=== PATIENT | female | born 2000 | race Caucasian/White ===

== ENCOUNTER → 2019-06-16 18:06 | Outpatient (BNVA) | payer SELFPAY | PROVIDERS: PCP Nurse Practitioner Family; Visit Provider Nurse Practitioner | DX: J20.8 Acute bronchitis due to other specified organisms (principal); B96.89 Other specified bacterial agents as the cause of diseases classified elsewhere; J02.9 Acute pharyngitis, unspecified | CPT/HCPCS: 87804 ==

== ENCOUNTER → 2019-06-22 15:30 | Outpatient (BNVA) | payer SELFPAY | PROVIDERS: PCP Nurse Practitioner Family; Visit Provider Nurse Practitioner Family | DX: R50.9 Fever, unspecified (principal); J98.8 Other specified respiratory disorders | CPT/HCPCS: 87400 ==

== ENCOUNTER → 2019-07-11 11:30 | Outpatient (BNVA) | payer MEDICAID, SELFPAY | PROVIDERS: PCP Nurse Practitioner Family; Visit Provider Obstetrics & Gynecology | DX: Z34.90 Encounter for supervision of normal pregnancy, unspecified, unspecified trimester (principal) | CPT/HCPCS: 81025 ==

== ENCOUNTER → 2019-08-02 09:20 | Outpatient (BNVA) | payer MEDICAID, SELFPAY | PROVIDERS: PCP Nurse Practitioner Family; Visit Provider Obstetrics & Gynecology | DX: Z34.01 Encounter for supervision of normal first pregnancy, first trimester (principal) | CPT/HCPCS: 80053; 80307; 81000; 86592; 86762; 86803; 86850; 86900; 87340; 87806 ==

== ENCOUNTER 2019-08-11 11:01 | Emergency (ER) | payer MEDICAID, SELFPAY ==
[2019-08-11] VITALS (14 sets, daily range): BP systolic 119–142; BP diastolic 76–105; PULSE 97–127; RESP 16–28; TEMP 36.6–37.3; O2SAT 97–100; BMI 19.7
--- NOTE | 2019-08-11 11:15 | W.ED.NAVMDI ---
HPI - Nausea/Vomiting/Diarrhea General: Chief complaint: Nausea/Vomiting/Diarrhea Stated complaint: 11 WKS PREG, VOMITING Time Seen by Provider: 08/11/19 11:04 Source: patient Mode of arrival: ambulatory History of Present Illness: HPI Narrative: 1-year-old female who is currently 12 weeks . She states she had multiple episodes of vomiting through this . She states she tried a suppository for nauseous morning has not helped. She is continued to vomit throughout the day. She denies any abdominal pain or vaginal bleeding. She denies any worsening or improving factors. MD elicited complaint: nausea and vomiting Onset (ago): day(s) Description of vomiting: food contents Associated nausea: Yes Associated abdominal pain: No Associated symtoms: Reports nausea; Denies chest pain, dysuria or headache(s) Review of Systems Const: Denies: fever, chills, body aches or change in appetite Eyes: Denies: blurry vision or eye discomfort ENMT: Denies: throat pain or dental pain Card: Denies: chest pain Resp: Denies: shortness of breath GI: Reports: nausea and vomiting : Denies: painful urination Musc: Denies: neck pain or back pain Skin/Breast: Denies: rash Neuro: Denies: headache Psych: Denies: depression Carlos/Lymph: Denies: easy bruising All/Imm: Denies: hives PFS ED PFSH: Medical History (Updated 08/11/19 @ 17:57 by Joaquín Calvo MD) Anxiety with depression History of traumatic head injury (~2013) thrown from a horse-- no surgical intervention Migraine with aura Social History Smoking and tobacco status: never smoked Alcohol intake: never Female Reproductive History: Date of last menstrual period: 05/21/19 Physical Exam Const: COMMON NORMALS: no apparent distress, oriented x3 and healthy appearing HENMT: COMMON NORMALS: normocephalic and head/scalp atraumatic HEAD & SCALP: normocephalic and atraumatic Eye: COMMON NORMALS: PERRL and EOMs intact bilaterally PUPIL: Yes PERRL Neck/C-Spine: COMMON NORMALS: full ROM and supple Chest: COMMONS NORMALS: inspection of chest normal and palpation of chest normal Resp: COMMON NORMALS: normal respiratory effort, no retractions, no use of accessory muscles and clear to auscultation bilaterally AUSCULTATION: clear to auscultation bilaterally Cardio: COMMON NORMALS: regular rate, regular rhythm and no murmurs RATE: regular rate RHYTHM: regular rhythm GI: COMMON NORMALS: normal to inspection, nondistended, normoactive bowel sounds, soft to palpation, non-tender and no masses PALPATION: Yes soft Extremity: COMMON NORMALS: normal to inspection and full ROM Neuro: COMMON NORMALS: oriented x3, moves all extremities and no focal motor deficits Psych: COMMON NORMALS: mental status grossly normal, thought process normal and cooperative THOUGHT PROCESS: normal thought process Skin: COMMON NORMALS: no rashes or lesions noted and no wounds GENERAL SKIN EXAM: no rashes or lesions noted Course Vital Signs: Vital signs: Vital Signs Temperature 98.6 F 08/11/19 16:56 Pulse Rate 124 H 08/11/19 17:45 Respiratory Rate 20 H 08/11/19 17:45 Blood Pressure 127/86 08/11/19 17:45 Pulse Oximetry 100 08/11/19 17:45 MDM - Nausea/Vomiting/Diarrhea MDM Narrative: Medical decision making narrative: Patient presents here with hyperemesis gravidarum. Patient x-ray had free air so CT was performed which showed pneumomediastinum with concern of esophageal rupture. I spoke to CT surgeon on-call at [facility] Dr. Todd and did a barium swallow as requested. Barium swallow showed no active leak at this time. Patient is continued to have nausea here. CASH POSTER here felt uncomfortable admitting with no CT surgery with all the pneumomediastinum. I spoke to OB at [facility] and will transfer there for higher level of care. Patient has been stable while here. Lab Data: Labs: Lab Results 08/11/19 08/11/19 08/11/19 Range/Units 11:35 11:35 15:20 WBC 22.6 H (4.0-10.0) 10^3/ uL RBC 5.51 H (4.1-5.3) 10^6/u L Hgb 15.8 H (11.5-15.3) g/dL Hct 46.4 (37.0-47.0) % MCV 84.2 (81-99) fL MCH 28.7 (28.0-34.0) pg MCHC 34.1 (30.0-36.0) g/dL RDW 12.9 (12.1-15.1) % Plt Count 335 (130-400) 10^3/c mm MPV 10.7 H (7.4-10.4) fL Neut % (Auto) 92.1 % Lymph % (Auto) 4.8 % [place] % (Auto) 1.9 % Eos % (Auto) 0.0 % Baso % (Auto) 0.1 % Neut # (Auto) 20.8 H (1.8-7.7) 10^3/u L Lymph # (Auto) 1.1 (0.8-4.8) 10^3/u L [place] # (Auto) 0.4 (0.2-0.9) 10^3/u L Eos # (Auto) 0.0 (0.0-0.8) 10^3/u L Baso # (Auto) 0.0 (0.0-0.1) 10^3/u L Nucleated RBC % (a uto) 0 % Nucleated RBCs # 0.0 /100WBC Sodium 135 L (136-145) mmol/L Potassium 3.5 (3.5-5.1) mmol/L Chloride 94 L (98-107) mmol/L Carbon Dioxide 17 L (22-29) mmol/L Anion Gap 27.5 H (5-19) BUN 11 (6-20) mg/dL Creatinine 0.7 (0.5-0.9) mg/dL GFR Calculation 105.6 (90-130) mL/min Glucose 175 H (65-115) mg/dL Calculated Osmolal ity 280 L (285-295) mOsm/k g Calcium 11.6 H (8.5-10.5) mg/dL Total Bilirubin 0.4 (0.15-1.2) mg/dL AST 25 (0-32) U/L ALT 11 (0-33) U/L Alkaline Phosphata se 75 (35-105) IU/L Total Protein 9.4 H (6.6-8.7) g/dL Albumin 5.0 (3.5-5.2) g/dL Globulin 4.4 (1.3-4.6) g/dL Lipase 22 (13-60) U/L Urine Color Yellow (Yellow) Urine Appearance Clear (CLEAR) Urine pH 5 (5-7) Ur Specific Gravit y 1.005 (1.005-1.030) Urine Protein 1+ H (Negative) Urine Glucose (UA) Norm (Normal) Urine Ketones 3+ H (Negative) Urine Blood Neg (Negative) Urine Nitrate Negative (Negative) Urine Bilirubin Neg (NEGATIVE) Urine Urobilinogen Norm (Negative) mg/dL Ur Leukocyte Melissa ase Negative (Negative) Urine RBC None (0-2) /hpf Urine WBC 0-4 H (0-5) /hpf Ur Squamous Epith Cells 0-4 H (0-5) Urine Bacteria Trace (NONE) Urine Mucus 3+ Imaging Data^: CT Chest: Radiologist's impression: [place] [address] CT Scan Report Signed Patient: Peña Emmanuel Unit #: [id number] : [id number] Age/Sex: 19 / F ADM Date: 08/11/19 Loc: ER Room/Bed: Attending Dr: Ordering Provider/Ordering MD: Joaquín Calov MD Date of Service: 08/11/19 Procedure(s): CT chest w con* [id number] Accession Number(s): [id number] Report Number: [id number] WS: [id number] CT CHEST TECHNIQUE: Contrast enhanced CT of the chest with coronal and sagittal reformatted images. CLINICAL INFORMATION: chest pain. Hyperemesis gravidarum. COMPARISON: None. DLP: 323.[address] scans at [facility] use at least one of these dose optimization techniques: automated exposure control; mA and/or kV adjustment per patient size (includes targeted exams where dose is matched to clinical indication); or iterative reconstruction. FINDINGS: Extensive pneumomediastinum involving the anterior, middle and posterior mediastinum. Air surrounds the great vessels, trachea, esophagus, and dissects into the fascial planes. Subcutaneous emphysema extends into the lower neck right greater than left and right axilla. Posteriorly air surrounds the thoracic esophagus and distal esophagus at the GE junction. Given clinical history findings most likely due to esophageal perforation. No pneumothorax. Both lungs are well aerated. Tiny amount of air in the epidural space thoracic spine. Ribs are normal in appearance. No acute fractures. Normal caliber thoracic aorta. Upper abdominal contents are unremarkable. IMPRESSION: 1. Extensive pneumomediastinum described above with subcutaneous emphysema extending into the lower neck and right axilla. 2. Given clinical history and imaging findings esophageal perforation is the primary consideration. Air surrounding the distal esophagus and GE junction. 3. No pneumothorax. 4. Lungs are well aerated. EKG Data^: EKG 1: Attestation: I personally reviewed and interpreted this EKG as follows: EKG interpretation date: 08/11/19 EKG interpretation time: 13:32 Interpretation: sinus tach hr [address] or t wave abnormalities qrs 92 qtc 415 Critical Care Time Critical Care Time: Critical Care Time: Yes Total Critical Care Time: 35 Attestation: This case had a high probability of a clinically significant, sudden, or life threatening deterioration of this patient's condition which required my full and direct attention, intervention and personal management. Discharge Plan Discharge Patient Disposition: Xfer Other Clinical Impression: Hyperemesis gravidarum, Pneumomediastinum Condition: Stable Referrals: Kera Salazar APN [Primary Care Provider] - Coding Level of Care Code ED Charge Lpn for Chg Fwd Exam Comprehensive
[2019-08-11 11:46] LABS: Basophils % 0.1 %; Hematocrit 46.4 % (37.0-47.0); Hemoglobin 15.8 g/dL (11.5-15.3); Lymphocytes # 1.1 10^3/uL (0.8-4.8); Lymphocytes % 4.8 %; Mean Corpuscular HGB Conc 34.1 g/dL (30.0-36.0); Mean Corpuscular Hemoglobin 28.7 pg (28.0-34.0); Mean Corpuscular Volume 84.2 fL (81-99); Mean Platelet Volume 10.7 fL (7.4-10.4); Monocytes # 0.4 10^3/uL (0.2-0.9); Monocytes % 1.9 %; Neutrophils # 20.8 10^3/uL (1.8-7.7); Neutrophils % 92.1 %; Nucleated Red Blood Cells % 0 %; Platelet Count 335 10^3/cmm (130-400); Red Blood Count 5.51 10^6/uL (4.1-5.3); Red Cell Distribution Width 12.9 % (12.1-15.1); White Blood Count 22.6 10^3/uL (4.0-10.0)
--- NOTE | 2019-08-11 11:49 | US_ITS ---
WS: [id number] ABDOMINAL ULTRASOUND LIMITED REASON FOR VISIT: abd pain TECHNIQUE: Grayscale and Doppler ultrasound examination of the abdomen. FINDINGS: Pancreas: Appears to be within normal limits. Abdominal aorta and IVC: Normal findings. Liver: Liver measures 15.1 cm in length. Normal hepatopedal flow. Gallbladder: Gallbladder wall thickness measures 0.2 mm. No stones are noted. Right kidney: Right kidney measures 10.2 cm x 5.4 cm x 3.9 cm. No hydronephrosis or stones are seen. US/US gall bladder 94200 IMPRESSION: Negative right upper quadrant abdominal survey by ultrasound.
[2019-08-11] MEDS: diphenhydrAMINE 50 mg/mL SDV 1mL IVP ×2 (11:50→17:38)
[2019-08-11] MEDS: sodium chloride 0.9% 1,000 ML 999 ML IV ×2 (11:50→14:16)
[2019-08-11] MEDS: metoclopramide 5 mg/mL SDV 2 mL 10 MG IVP (11:51)
[2019-08-11 12:08] LABS: Alanine Aminotransferase 11 U/L (0-33); Alkaline Phosphatase 75 IU/L (35-105); Anion Gap 27.5 (5-19); Aspartate Amino Transferase 25 U/L (0-32); Blood Urea Nitrogen 11 mg/dL (6-20); Calcium 11.6 mg/dL (8.5-10.5); Carbon Dioxide 17 mmol/L (22-29); Chloride 94 mmol/L (98-107); Globulin 4.4 g/dL (1.3-4.6); Glomerular Filtration Rate 105.6 mL/min (90-130); Glucose 175 mg/dL (65-115); Lipase 22 U/L (13-60); Osmolality Calculated 280 mOsm/kg (285-295); Potassium 3.5 mmol/L (3.5-5.1); Sodium 135 mmol/L (136-145); Total Bilirubin 0.4 mg/dL (0.15-1.2); Total Protein 9.4 g/dL (6.6-8.7)
--- NOTE | 2019-08-11 13:17 | ECG_ITS ---
Measurements Intervals [place] Rate: 100 P: 60 NV: 133 QRS: 60 QRSD: 92 T: 29 QT: 358 QTc: 462 SINUS TACHYCARDIA ABNORMAL RHYTHM ECG No previous ECG available for comparison Electronically Signed On 08-11-2019 14:14:58 CDT by Cate Montaño M.D. [id number]
--- NOTE | 2019-08-11 13:23 | XR_ITS ---
WS: [id number] XR chest 1V portable [id number] REASON FOR EXAM: cp Subcutaneous emphysema is seen overriding the right hemidiaphragm extends to the midportion of the ch est. A definite pneumothorax is not seen. The heart is not enlarged. There is no pneumonia, pleural effusion, pulmonary edema. XR/XR chest 1V portable [id number] IMPRESSION: Subcutaneous emphysema overriding the right upper chest right clavicle area ext ends into the neck.
[2019-08-11] MEDS: ondansetron 2 mg/ML SDV 2 mL 4 MG IVP (13:25)
[2019-08-11] MEDS: dextrose 5%-sod chloride 0.45% 1,000 ML 150 ML IV ×2 (14:10→21:00)
--- NOTE | 2019-08-11 14:22 | CT_ITS ---
WS: [id number] CT CHEST TECHNIQUE: Contrast enhanced CT of the chest with coronal and sagittal reformatted images. CLINICAL INFORMATION: chest pain. Hyperemesis gravidarum. COMPARISON: None. DLP: 323.[address] scans at [facility] use at least one of these dose optimization techniques: automat ed exposure control; mA and/or kV adjustment per patient size (includes targeted exams where dose is matched to clinical indication); or iterative reconstruction. FINDINGS: Extensive pneumomediastinum involving the anterior, middle and posterior mediastinum. Air surrounds t he great vessels, trachea, esophagus, and dissects into the fascial planes. Subcutaneous emphysema extends into the lower neck right greater than left and right axilla. Posterio rly air surrounds the thoracic esophagus and distal esophagus at the GE junction. Given clinical hist ory findings most likely due to esophageal perforation. No pneumothorax. Both lungs are well aerated. Tiny amount of air in the epidural space thoracic spine. Ribs are normal in appearance. No acute fractures. Normal caliber thoracic aorta. Upper abdominal con tents are unremarkable. IMPRESSION: 1. Extensive pneumomediastinum described above with subcutaneous emphysema extending into the lower neck and right axilla. 2. Given clinical history and imaging findings esophageal perforation is the primary consideration. Air surrounding the distal esophagus and GE junction. 3. No pneumothorax. 4. Lungs are well aerated. Notified Joaquín Calvo MD at 08/11/2019 3:25 PM.
[2019-08-11] MEDS: iohexol 300 mg/mL 100 mL Btl IV (14:52)
--- NOTE | 2019-08-11 16:03 | FL_ITS ---
WS: [id number] Barium swallow TECHNIQUE: Single contrast Gastrografin CLINICAL INFORMATION: r/o esop rupture COMPARISON: None. FINDINGS: Partially visualized pneumomediastinum as described on the chest CT. Swallowing: Normal. Esophagus: No evidence of contrast extravasation or esophageal leak. Slightly delayed esophageal empt derik with tachycardia. Mild esophageal reflux in the upright position into the distal esophagus. Visu alized proximal stomach appears normal. No significant hiatal hernia. Gastroesophageal reflux: Active reflux in the upright position into the distal esophagus. Fluoroscopy time: 2.4 minutes. Notified Joaquín Calvo MD at 08/11/2019 5:00 PM. FL/FL barium swallow gastro [id number] IMPRESSION: No evidence of active esophageal leak at the GE junction or esophageal hiatus.
[2019-08-11 16:06] LABS: Add Urine Microscopic? YES; Bilirubin Urine Neg (NEGATIVE); Blood Urine Neg (Negative); Glucose Urine UA Norm (Normal); Ketones Urine 3+ (Negative); Leukocyte Esterase Urine Negative (Negative); Nitrate Urine Negative (Negative); Protein Urine 1+ (Negative); Specific Gravity, Urine 1.005 (1.005-1.030); Urine Appearance Clear (CLEAR); Urine Color Yellow (Yellow); Urobilinogen Urine Norm (Negative); pH Urine 5 (5-7)
[2019-08-11 16:07] LABS: Add Urine Culture? No; Bacteria Urine TRACE; Mucus Urine 3+; Squamous Epithelial Cell Urine 0-4 (0-5); WBC Urine 0-4 /hpf (0-5)
[2019-08-11] MEDS: piperacillin-tazobactam 3.375 GM in sodium chloride 0.9% (plus) 50 ML IV (16:09)
[2019-08-11] MEDS: metoclopramide 5 mg/mL SDV 2 mL IVP (17:37)
[2019-08-11] MEDS: morphine 4 mg/mL SDV 1 mL IVP (19:10)
--- NOTE | 2019-08-11 19:54 | PC.NURSE ---
report called to [facility]. to Dustin Shields
== END 2019-08-11 21:06 | disposition other institution (70) ==
PROVIDERS: Emergency Provider Emergency Medicine; PCP Nurse Practitioner Family
DX: O21.0 Mild hyperemesis gravidarum (principal); Z3A.12 12 weeks gestation of pregnancy; O26.891 Other specified pregnancy related conditions, first trimester; J98.2 Interstitial emphysema
CPT/HCPCS: 12345; 71045; 71260; 74220; 76705; 80053; 81001; 83690; 85025; 93005; 96365; 96366; 96367; 96375; 96376; 99284; 99285; J1200; J2270; J2405; J2543; J2765; J7030; J7799; Q9967

== ENCOUNTER → 2019-08-19 14:42 | Outpatient (BNVA) | payer MEDICAID, SELFPAY | PROVIDERS: PCP Nurse Practitioner Family; Visit Provider Obstetrics & Gynecology | DX: Z34.01 Encounter for supervision of normal first pregnancy, first trimester (principal) | CPT/HCPCS: 81000 ==

== ENCOUNTER → 2019-08-26 10:55 | Outpatient (BNVA) | payer MEDICAID, SELFPAY | PROVIDERS: PCP Nurse Practitioner Family; Visit Provider Obstetrics & Gynecology | DX: Z12.4 Encounter for screening for malignant neoplasm of cervix (principal); Z34.01 Encounter for supervision of normal first pregnancy, first trimester | CPT/HCPCS: 81000; 87491; 87591; 88175 ==

== ENCOUNTER → 2019-09-13 15:49 | Outpatient (BNVA) | payer MEDICAID, SELFPAY | PROVIDERS: PCP Nurse Practitioner Family; Visit Provider Nurse Practitioner Women's Health | DX: K22.3 Perforation of esophagus (principal); O21.1 Hyperemesis gravidarum with metabolic disturbance; O99.342 Other mental disorders complicating pregnancy, second trimester; G43.109 Migraine with aura, not intractable, without status migrainosus | CPT/HCPCS: 81000 ==

== ENCOUNTER → 2019-10-12 08:08 | Outpatient (BNVA) | payer MEDICAID, SELFPAY | PROVIDERS: PCP Nurse Practitioner Family; Visit Provider Obstetrics & Gynecology | DX: Z34.02 Encounter for supervision of normal first pregnancy, second trimester (principal) | CPT/HCPCS: 76805 ==

== ENCOUNTER → 2019-10-14 11:40 | Outpatient (BNVA) | payer MEDICAID, SELFPAY | PROVIDERS: PCP Nurse Practitioner Family; Visit Provider Obstetrics & Gynecology | DX: O21.1 Hyperemesis gravidarum with metabolic disturbance (principal); Z3A.20 20 weeks gestation of pregnancy | CPT/HCPCS: 81000 ==

== ENCOUNTER → 2019-11-09 15:19 | Outpatient (BNVA) | payer MEDICAID, SELFPAY | PROVIDERS: PCP Nurse Practitioner Family; Visit Provider Obstetrics & Gynecology | DX: Z34.90 Encounter for supervision of normal pregnancy, unspecified, unspecified trimester (principal); G43.109 Migraine with aura, not intractable, without status migrainosus | CPT/HCPCS: 81000 ==

== ENCOUNTER → 2019-12-07 13:01 | Outpatient (BNVA) | payer MEDICAID, SELFPAY | PROVIDERS: PCP Nurse Practitioner Family; Visit Provider Nurse Practitioner Women's Health | DX: Z34.02 Encounter for supervision of normal first pregnancy, second trimester (principal) | CPT/HCPCS: 81000; 82950; 85027 ==

== ENCOUNTER → 2019-12-21 09:54 | Outpatient (BNVA) | payer MEDICAID, SELFPAY | PROVIDERS: PCP Nurse Practitioner Family; Visit Provider Obstetrics & Gynecology | DX: Z34.90 Encounter for supervision of normal pregnancy, unspecified, unspecified trimester (principal) | CPT/HCPCS: 81000 ==

== ENCOUNTER → 2020-01-18 15:40 | Outpatient (BNVA) | payer MEDICAID, SELFPAY | PROVIDERS: PCP Nurse Practitioner Family; Visit Provider Nurse Practitioner Women's Health | DX: Z34.02 Encounter for supervision of normal first pregnancy, second trimester (principal) | CPT/HCPCS: 81000 ==

== ENCOUNTER → 2020-02-01 16:20 | Outpatient (BNVA) | payer MEDICAID, SELFPAY | PROVIDERS: PCP Nurse Practitioner Family; Visit Provider Obstetrics & Gynecology | DX: Z34.02 Encounter for supervision of normal first pregnancy, second trimester (principal); Z34.90 Encounter for supervision of normal pregnancy, unspecified, unspecified trimester | CPT/HCPCS: 81000; 87081 ==

== ENCOUNTER → 2020-02-08 15:28 | Outpatient (BNVA) | payer MEDICAID, SELFPAY | PROVIDERS: PCP Nurse Practitioner Family; Visit Provider Obstetrics & Gynecology | DX: Z34.90 Encounter for supervision of normal pregnancy, unspecified, unspecified trimester (principal) | CPT/HCPCS: 81000 ==

== ENCOUNTER → 2020-02-15 14:59 | Outpatient (BNVA) | payer MEDICAID, SELFPAY | PROVIDERS: PCP Nurse Practitioner Family; Visit Provider Obstetrics & Gynecology | DX: Z34.90 Encounter for supervision of normal pregnancy, unspecified, unspecified trimester (principal) | CPT/HCPCS: 81000 ==

== ENCOUNTER 2020-02-21 06:53 | Inpatient (IN) | payer MEDICAID, SELFPAY ==
[2020-02-21] VITALS (119 sets, daily range): BP systolic 0–157; BP diastolic 0–103; PULSE 51–120; RESP 16–18; TEMP 36.7–37.6; O2SAT 91–98; BMI 25.7
[2020-02-21 05:04] LABS: Nitrazine Paper, PH Negative
[2020-02-21] MEDS: ondansetron 4 MG Tablet PO (05:20)
[2020-02-21] MEDS: ondansetron 2 mg/ML SDV 2 mL 4 MG IVP ×3 (07:13→15:52)
[2020-02-21] MEDS: lactated ringers 1,000 ML 999 ML IV (07:15)
[2020-02-21 08:23] LABS: Basophils % 0.2 %; Hematocrit 36.7 % (37.0-47.0); Hemoglobin 11.6 g/dL (11.5-15.3); Lymphocytes # 1.9 10^3/uL (0.8-4.8); Lymphocytes % 15.7 %; Mean Corpuscular HGB Conc 31.6 g/dL (30.0-36.0); Mean Corpuscular Hemoglobin 25.7 pg (28.0-34.0); Mean Corpuscular Volume 81.2 fL (81-99); Mean Platelet Volume 13.5 fL (7.4-10.4); Monocytes # 0.5 10^3/uL (0.2-0.9); Monocytes % 4.2 %; Neutrophils # 9.73 10^3/uL (1.8-7.7); Neutrophils % 79.5 %; Nucleated Red Blood Cells % 0 %; Platelet Count 276 10^3/cmm (130-400); Red Blood Count 4.52 10^6/uL (4.1-5.3); Red Cell Distribution Width 15.1 % (12.1-15.1); White Blood Count 12.2 10^3/uL (4.0-10.0)
--- NOTE | 2020-02-21 08:47 | ANES.PREANE2 ---
Pre-Anesthetic Assessment Pre-Anesthetic Assessment: Height/Weight: Height 1.63 m Weight 68.039 kg Temp Pulse Resp BP Pulse Ox 98.8 F 87 16 116/66 97 02/21/20 04:45 02/21/20 08:44 02/21/20 04:45 02/21/20 08:44 02/21/20 08:45 Preop Diagnosis: IUP Proposed Procedure: epidural Familial anesthetic complications: none Was Beta Eamon taken within 24 hours: N/A Last intake: 0800 Social: Social History: No alcohol and No tobacco Exam: Pre-Anes Outpt Exam: alert, oriented x 3, clear to auscultation bilaterally and regular rate & rhythm Airway: Cervical ROM: WNL MP: 2 Dentition: Full GI: Comments: hx ruptured esophagus Anesthetic Plan: ASA status: 2 Anesthesia: Regional (specify below) Risk of > 500 ml blood loss (7ml/kg in children): Yes, adequate IV access and fluids planned Meds/Allergies Current Medications: Current Medications Generic Name Dose Route Start Last Admin Trade Name Freq PRN Reason Stop Dose Admin Ropivacaine 200 mg in 100 mls @ 13 mls/hr 02/21/20 06:50 02/21/20 07:21 Naropin Premix EPIDURAL 13 mls/hr .Q7H42M PRN Administration ANESTHESIA Lactated Ringer's 1,000 mls @ 999 m ls/hr 02/21/20 06:50 02/21/20 08:17 Lactated Ringers IV Infused .Q1H1M PRN Infusion See label comment s Ondansetron HCl 4 mg 02/21/20 06:48 02/21/20 07:13 Ondansetron 2 Mg /Ml Sdv 2 Ml IVP 4 mg Q4H PRN Administration NAUSEA AND VOMITI NG PFSH Anesthesia PFSH: Medical History (Updated 02/15/20 @ 15:31 by Josh Lee MD) Anxiety with depression History of traumatic head injury (~2013) thrown from a horse-- no surgical intervention Migraine with aura Surgical History H/O oral surgery Family History Mother Stroke Family history of thyroid problem Grandmother Family history of thyroid problem Maternal grandmother Ovarian cancer Paternal grandmother Diabetes Maternal Hypertension Maternal Grandfather Heart disease Maternal grandfather Diabetes Maternal Hypertension Materanl Social History (Updated 02/19/20 @ 19:23 by Josh Lee MD) Smoking and tobacco status: never smoked Alcohol intake: never Additional social history: Female Reproductive History: Date of last menstrual period: 05/21/19 : 1 Data Anesthesia CBC & Chem 7: 02/21/20 06:50 Other Labs: Laboratory Results - last 48 hr 02/21/20 06:50 WBC 12.2 H RBC 4.52 Hgb 11.6 Hct 36.7 L MCV 81.2 MCH 25.7 L MCHC 31.6 RDW 15.1 Plt Count 276 MPV 13.5 H Neut % (Auto) 79.5 Lymph % (Auto) 15.7 [place] % (Auto) 4.2 Eos % (Auto) 0.0 Baso % (Auto) 0.2 Neut # (Auto) 9.73 H Lymph # (Auto) 1.9 [place] # (Auto) 0.5 Eos # (Auto) 0.0 Baso # (Auto) 0.0 Nucleated RBC % (auto) 0 Nucleated RBCs # 0.0 Cardiac Studies: No Data to Display Anesthesia Procedures Epidural: Time Out Performed: Yes Consents Signed: Procedure Consent, NPO Consent and No Consent Needed Consent: requested by attending/covering physician, from patient, from other and risks and benefits reviewed Lumbar Level: L2-L3 Epidural position: laying on side Epidural procedure: sterile prep of area, 1% lidocaine to numb the area, 18 g needle, negative for paresthesia passed, neg for paresthesia, test dose given, 1.5% xylocaine 1:200k epi (5 cc (divided dose)), 0.2% Ropivacaine bolus ml (5 ml), placed PCEA, no systemic response, sterile dressing applied, L.U.D. no apparent complications and 0.2% Ropiavacaine @ mls/hr (13)
[2020-02-21] MEDS: metoclopramide 5 mg/mL SDV 2 mL 10 MG IV (13:04)
[2020-02-21] MEDS: dextrose 5%-lactated ringers 1,000 ML 125 ML IV ×2 (13:04→15:51)
[2020-02-21] MEDS: oxytocin 30 UNIT/500 ML BAG IV (13:35)
--- NOTE | 2020-02-21 19:06 | P.PCNOB_ITS ---
Delivery Note: Date of delivery: February 21, 2020 Pre-delivery diagnoses: 1. at 39-3/7 weeks gestation 2. Mental disorder (depression/anxiety) complicating in 3rd trimester 3. Nausea and vomiting complicating in 3rd trimester Post-delivery diagnoses: 1. Spontaneous vaginal delivery at 39-3/7 weeks gestation. 2. Mental disorder (depression/anxiety) complicating - delivered 3. Nausea and vomiting complicating - delivered 4. Viable male Procedure: Spontaneous vaginal delivery Op report anesthesia: Epidural Delivering Physician: Josh Lee MD Estimated blood loss (mL): 125 Pre-Delivery Course: Patient is a 19-year-old white female 1, para 0 with an LMP of 05/21/2019 and an EDC of 02/25/2020 based on LMP and consistent with a 20-week ultrasound, which places her at 39-3/7 weeks gestation. She presented to labor and delivery at 03:31 on 02/21/2020 with a complaint of contractions which had started at about midnight. She was 70% effaced and 3 to 4 cm dilated. By 8:45 she was 5 cm dilated. She had epidural placed. However she did not make any further progression through the rest the morning and by 13:00, she was still 5 cm dilated. As a result, Pitocin augmentation was started. She made slow progression through the afternoon and by 16:10 she was 7 cm dilated and by 17:38, she was completely dilated. Delivery: Patient started pushing at 17:59 and delivered at 18:36 as a spontaneous vaginal delivery of an occiput anterior male infant over an intact perineum under epidural anesthesia. Following delivery of the infant's head, one loop of nuchal cord was noted and easily reduced. The rest of the infant was delivered atraumatically with the right shoulder anterior. The baby was placed on the mother's abdomen where it was left in the care of the waiting nurses. It was spontaneously crying. Cord was clamped. It was cut by the reported father of the baby. Cord blood was obtained. Pitocin bolus was started. Placenta delivered intact by simple expression at 18:39. The cervix and vagina were palpated and noted to be intact. The labia were inspected and noted to be intact except for superficial abrasions which required no repair. FINDINGS 1. Viable male weighing 6 lbs 0 oz (2715 g) with a length of 20 in. and Apgars of 9 at 1 min and 9 at 5 min. 2. Three-vessel cord with 1 loop of nuchal cord noted. 3. Normal-appearing placenta with an eccentric cord insertion. Post-Delivery Status: Mother and infant were left to recover in satisfactory condition. A&P Assessment and plan (1) Spontaneous vaginal delivery: Status: Acute Coding Level of Care Code Acute Co Chairman for [facility] Henri Diagnoses Spontaneous vaginal delivery O80
[2020-02-21] MEDS: ibuprofen 800 mg tablet PO (20:46)
[2020-02-21] MEDS: benzocaine-menthol 78 gm Canister 1 SPRAY TOPICAL (20:46)
[2020-02-21] MEDS: lanolin oint 7 gm 1 APPLIC TOPICAL (20:47)
[2020-02-22 00:40] VITALS: BP 124/70; PULSE 91; RESP 16; TEMP 36.9; O2SAT 96
[2020-02-22 06:00] VITALS: BP 121/79; PULSE 83; RESP 16; TEMP 36.8; O2SAT 96
[2020-02-22 06:00] LABS: Hematocrit 31.9 % (37.0-47.0); Mean Corpuscular HGB Conc 31.3 g/dL (30.0-36.0); Mean Corpuscular Hemoglobin 25.8 pg (28.0-34.0); Mean Corpuscular Volume 82.4 fL (81-99); Mean Platelet Volume 12.5 fL (7.4-10.4); Platelet Count 224 10^3/cmm (130-400); Red Blood Count 3.87 10^6/uL (4.1-5.3); Red Cell Distribution Width 15.5 % (12.1-15.1)
[2020-02-22] MEDS: ibuprofen 800 mg tablet PO ×2 (08:49→15:40)
[2020-02-22] MEDS: docusate sodium 100 mg Capsule PO (08:50)
[2020-02-22 08:52] VITALS: BP 132/80; PULSE 94; RESP 18; TEMP 36.8; O2SAT 97
[2020-02-22 12:47] VITALS: BP 120/76; PULSE 73; RESP 18; TEMP 36.7; O2SAT 96
--- NOTE | 2020-02-22 12:57 | ANE.PACU2 ---
Inpatient post-anesthesia follow up: Airway intact: Yes Vital signs: Temperature 98.1 F Pulse Rate 73 Respiratory Rate 18 Blood Pressure 120/76 Pulse Oximetry 96 Oxygen Delivery Me thod Room Air Oxygen Flow Rate Fraction of Inspir ed Oxygen Hydration adequate: Yes Nausea and vomiting: No Pain level: 1 Mental status: Baseline Additional Comments: No signs of infection at neuraxial site, no residual numbness/weakness in legs, no headaches, urinating without ellis
[2020-02-22 16:36] VITALS: BP 129/81; PULSE 57; RESP 16; TEMP 36.8; O2SAT 98
--- NOTE | 2020-02-22 18:34 | PM.DCS ---
Discharge Providers Date of Admission: 02/21/20 06:53 Date of Discharge: February 22, 2020 Attending Provider at Admission: Leon Garcia MD Attending Provider at Discharge: Leon Garcia MD Primary Care Provider: Kera Salazar APN Diagnoses at Discharge Discharge Diagnosis (1) Spontaneous vaginal delivery: Status: Acute Reason for Visit Reason for Visit: contractions Hospital Course Hospital Course Patient is a 19-year-old white female 1, para 0 with an LMP of 05/21/2019 and an EDC of 02/25/2020 based on LMP and consistent with a 20-week ultrasound, which placed her at 39-3/7 weeks gestation. She presented to L&D on 02/21/2020 at 03:31 with complaint of contractions. These it started about midnight. She was 3 to 4 cm dilated and 70% effaced. By 08:45 she had progressed to 5 cm dilation and had epidural placed. However she did not progress any further than that and had Pitocin started by approximately 1300. She made slow progression through the afternoon and was found to be completely dilated by 17:38. She started pushing at 17:59 and delivered at 18:36 as a spontaneous vaginal delivery of a dose of an anterior male over an intact perineum under epidural anesthesia. The baby weighed 6 lbs 0 oz (2715 g) with a length of 20 inches and Apgars of 9 at 1 minute 9 at 5 minutes. Mother and both did well following delivery. Day 1 Patient was without complaints. She reported pain was well controlled. She was tolerating regular diet without nausea or vomiting. She denied lightheadedness or dizziness with ambulation. She denied shortness of breath or chest pains. She denied problems with urination. She states that her bleeding had slowed. She is breast-feeding. She is wanting to go home. Physical exam: See below Plan Discharged home. Discharge instructions discussed with patient. Patient to follow-up in the office in approximately 6 weeks. Physical Exam Const: COMMON NORMALS: no acute distress, average body habitus, alert and well nourished GENERAL APPEARANCE: well developed ORIENTATION/CONSCIOUSNESS: Yes oriented to person, Yes oriented to place and Yes oriented to time GI: COMMON NORMALS: Soft to palpation, non-tender, No hepatosplenomegaly present and no masses (Except for nontender uterus) AUSCULTATION: Yes normoactive bowel sounds PALPATION: Yes Soft to palpation, Yes No hepatosplenomegaly present and No Hernia present : EXTERNAL FEMALE EXAM: No Hernia present Extremity: COMMON NORMALS: no calf tenderness NARRATIVE EXTREMITY EXAM: Trace to 1+ lower extremity edema Neuro: SENSORIUM/ORIENTATION: Yes alert, Yes oriented to person, Yes oriented to place and Yes oriented to time Psych: COMMON NORMALS: normal affect MOOD & AFFECT: Yes euthymic mood Skin: COMMON NORMALS: no rashes or lesions noted GENERAL SKIN EXAM: no rashes or lesions noted Urinary Catheter Management^: Marquis: Cath Placed During This Visit: yes Urinary Catheter Date of Insertion: 02/21/20 Urinary Catheter Time of Insertion: 08:45 Discharge Data Data Completed and Pending: Labs from last 24 hours 02/22/20 05:50 WBC 16.0 H RBC 3.87 L Hgb 10.0 L Hct 31.9 L MCV 82.4 MCH 25.8 L MCHC 31.3 RDW 15.5 H Plt Count 224 MPV 12.5 H Vitals: Last Vital Signs Temp 98.3 F 02/22/20 16:36 Pulse 57 L 02/22/20 16:36 Resp 16 02/22/20 16:36 BP 129/81 02/22/20 16:36 Pulse Ox 98 02/22/20 16:36 Discharge Plan Discharge Patient Disposition: Home Condition: Stable Prescriptions: Continued prenat.vits,gaviota,[id number] Tablet 1 tab PO DAILY RF: 0 fluoxetine 10 mg capsule 10 mg PO DAILY Qty: 30 RF: 0 propranolol 20 mg tablet 10 mg PO BID 30 Days Qty: 60 RF: 12 omeprazole 20 mg capsule,delayed release(DR/EC) 20 mg PO DAILY RF: 0 sumatriptan succinate 50 mg tablet 50 mg PO .every 2 hours PRN (Reason: migraine headache) Qty: 8 RF: 0 Discharge Orders: Discharge Order (Routine); Ordered 02/22/20 Ordered By: Josh Lee Referrals: Josh Lee MD [Physician] - 6 Weeks ( exam) Discharge Diet: Regular Discharge Activity: Limit activity as instructed Patient Instructions: OB Vaginal Deliveries - C Activity Restrictions/Additional Instructions: May use [id number] ibuprofen and Tylenol as needed Discharge Attestations Time Spent in Discharge Care*: less than 30 min Quality Metrics Clinical Quality Measures During this hospital stay, did patient experience: None Coding Level of Care Code Acute Community Outreach Worker for Chg Fwd Diagnoses Spontaneous vaginal delivery O80
[2020-02-22 19:50] VITALS: BP 124/73; PULSE 70; RESP 16; TEMP 36.6; O2SAT 96
== END 2020-02-22 20:20 | disposition home or self-care (01) | DRG 807 ==
LOC: OBGYN 07:47 → OPOB 07:47
PROVIDERS: Obstetrics & Gynecology; Admitting Provider Obstetrics & Gynecology; PCP Nurse Practitioner Family; Visit Provider Obstetrics & Gynecology
DX: O69.81X0 Labor and delivery complicated by cord around neck, without compression, not applicable or unspecified (principal); Z37.0 Single live birth; O99.344 Other mental disorders complicating childbirth; Z3A.39 39 weeks gestation of pregnancy; F41.8 Other specified anxiety disorders
CPT/HCPCS: 12345; 36415; 51702; 59025; 59409; 83986; 85025; 85027; 90471; 90686; 96374; 96375; 98960; 99211; J2405; J2765; J2795; Q0162

== ENCOUNTER → 2020-04-26 09:33 | Outpatient (BNVA) | payer MEDICAID, SELFPAY | PROVIDERS: PCP Nurse Practitioner Family; Visit Provider Obstetrics & Gynecology | DX: Z30.09 Encounter for other general counseling and advice on contraception (principal) | CPT/HCPCS: 81025 ==

== ENCOUNTER → 2020-12-17 08:46 | Outpatient (BNVA) | payer MEDICAID, SELFPAY | PROVIDERS: PCP Nurse Practitioner Family; Visit Provider Nurse Practitioner Women's Health | DX: Z97.5 Presence of (intrauterine) contraceptive device (principal); R10.9 Unspecified abdominal pain; R58 Hemorrhage, not elsewhere classified; N85.4 Malposition of uterus | CPT/HCPCS: 76830 ==

== ENCOUNTER → 2021-01-08 18:03 | Outpatient (BNVA) | payer MEDICAID, SELFPAY | PROVIDERS: PCP Nurse Practitioner Family; Visit Provider Nurse Practitioner Family | DX: R10.9 Unspecified abdominal pain (principal); R10.32 Left lower quadrant pain; K92.1 Melena | CPT/HCPCS: 80053; 81000; 85025 ==

== ENCOUNTER 2021-01-15 11:36 | Outpatient (CLI) | payer MEDICAID, SELFPAY ==
--- NOTE | 2021-01-15 11:42 | MR_ITS ---
WS: [id number] MRI PELVIS without CONTRAST. COMPARISON: Transvaginal pelvic ultrasound 12/17/2020 Multiplanar, multisequence imaging is performed without contrast. Normal size anteverted uterus. Only a single uterine cavity is identified which is positioned to the LEFT of midline. No significant amount of free fluid in the cul-de-sac. The endometrium and junctiona l zone are normal. Endometrium measures 13 mm. RIGHT ovary contains a follicle measuring 2.1 x 1.5 cm. There are additional smaller follicles. This RIGHT ovary is positioned within the posterior pelvis towards the midline. The LEFT ovary is very dif ficult to visualize and small caliber. No ovarian cysts on the LEFT. Urinary bladder is normal. MR/MR pelvis wo con* [id number] IMPRESSION: 1. Normal appearance of the uterus. 2. Dominant RIGHT ovarian follicle. The RIGHT ovary is positioned posterior an d inferior with relationship to the uterus. 3. Small caliber LEFT ovary. No mass.
== END 2021-01-15 11:37 | disposition home or self-care (01) ==
LOC: RADSHAW 11:41
PROVIDERS: PCP Nurse Practitioner Family; Visit Provider Nurse Practitioner Women's Health
DX: R10.2 Pelvic and perineal pain (principal); N88.9 Noninflammatory disorder of cervix uteri, unspecified; N83.01 Follicular cyst of right ovary
CPT/HCPCS: 72195

== ENCOUNTER 2021-02-01 08:48 | Outpatient (CLI) | payer MEDICAID, SELFPAY ==
[2021-02-01] MEDS: iohexol 300 mg/mL 50 mL Btl PO (09:38)
--- NOTE | 2021-02-01 10:30 | CT_ITS ---
WS: [id number] Exam: CT abdomen pelvis w con* [id number] Date/Time of Exam: 02/01/2021 8:51 AM Reason For Exam: R10.9 - Unspecified abdominal pain DLP: 930.[address] scans at [facility] use at least one of these dose optimization techniques: automated e xposure control; mA and/or kV adjustment per patient size (includes targeted exams where dose is matc hed to clinical indication); or iterative reconstruction. Lower lung zones are clear. The liver, spleen, stomach, and pancreas appear normal. No calcified ston es in the gallbladder. Unremarkable kidneys and adrenal glands. The abdominal aorta is normal in nickolas vi. The portal vein and IVC are patent. Small bowel loops are normal in caliber. Moderate amount of stool in the colon. No sign of acute appendix. A T-type IUD noted in the uterus. The uterine fundus i s positioned in the left pelvis. No pelvic mass or lymphadenopathy. Intact urinary bladder. Bony stru ctures are unremarkable. CT/CT abdomen pelvis w con* [id number] IMPRESSION: 1. No mass, lymphadenopathy or acute finding in the abdomen or pelvis. 2. Constipation.
[2021-02-01] MEDS: iohexol 300 mg/mL 100 mL Btl IV (10:37)
== END 2021-02-01 08:49 | disposition home or self-care (01) ==
PROVIDERS: PCP Nurse Practitioner Family; Visit Provider Nurse Practitioner Family
DX: R10.9 Unspecified abdominal pain (principal); K59.00 Constipation, unspecified
CPT/HCPCS: 74177; Q9967

== ENCOUNTER 2021-03-22 11:46 | Outpatient (CLI) | payer MEDICAID, SELFPAY ==
--- NOTE | 2021-03-22 11:45 | MR_ITS ---
WS: [id number] MRI PELVIS without CONTRAST. COMPARISON: 01/15/[address] 02/01/2021 Multiplanar, multisequence imaging is performed without contrast. Uterus is retroflexed and normal caliber. No fibroid or mass identified. The endometrium is normal si ze at 4 mm. There is a mixed signal intensity within the endometrium which may be retained blood prod ucts. There is no soft tissue nodule. No free fluid in the cul-de-sac. Both ovaries are identified and contain multiple small follicles. Ovarian veins are mildly prominent bilaterally suggesting there is probably mild pelvic venous congestion. No soft tissue mass or ovaria n mass. Visualized urinary bladder is normal. No adenopathy or free fluid. Previously described cyst along the posterior uterus seen on the prior examination has resolved. No endometrioma. MR/MR pelvis wo con* [id number] IMPRESSION: 1. Multiple small bilateral ovarian follicles. 2. Mildly engorged bilateral ovarian veins. Suggestive of mild pelvic congesti on syndrome. 3. Retroverted uterus. No fibroid or mass.
== END 2021-03-22 11:47 | disposition home or self-care (01) ==
LOC: RADSHAW 11:49
PROVIDERS: PCP Nurse Practitioner Family; Visit Provider Nurse Practitioner Women's Health
DX: N88.9 Noninflammatory disorder of cervix uteri, unspecified (principal)
CPT/HCPCS: 72195

== ENCOUNTER 2022-12-14 23:44 | Emergency (ER) | payer MEDICAID, SELFPAY ==
[2022-12-14 23:48] VITALS: BP 133/94; PULSE 106; RESP 18; TEMP 36.7; O2SAT 97; BMI 20.9
[2022-12-15] MEDS: sodium chloride 0.9% 1,000 ML 999 ML IV ×2 (00:28→02:31)
[2022-12-15] MEDS: metoclopramide 5 mg/mL SDV 2 mL 10 MG IVP (00:35)
--- NOTE | 2022-12-15 00:41 | XRR_ITS ---
PROCEDURE INFORMATION: Exam: XR Unlisted Diagnostic Radiographic Procedure Exam date and time: 12/15/2022 1:19 AM Age: 22 years old Clinical indication: Patient HX: Vomiting with wretching. History of prior esophageal tear. ; Additional info: Vomiting. HX of esophageal tear, with contrast. Tech notes: provider requested visualization of distal esophagus. reason for wide collimation on views. patient also also limiting number of exsposures to capture fully opacified esophagus. TECHNIQUE: Imaging protocol: Unlisted diagnostic radiographic procedure. X-ray esophagram. Other contrast: Oral, BARIUM SULFATE, 450ML BOTTLE 98% CONCENTRATION; COMPARISON: XA FL barium swallow gastro [id number] 08/11/2019 4:22 PM FINDINGS: A limited x-ray esophagram was performed. Four views were obtained and submitted for interpretation. The esophagus appears grossly normal. Esophageal motility cannot be assessed. There is no abnormal esophageal dilatation or filling defect. There is no contrast extravasation to suggest tear or leak. XR/XR soft tissue neck [id number] IMPRESSION: No acute abnormality demonstrated. No evidence of esophageal tear on limited x-ray esophagram.
[2022-12-15 00:46] VITALS: BP 112/83; PULSE 96; O2SAT 98
[2022-12-15 00:47] LABS: Basophils % 0.1 %; Hematocrit 41.5 % (36-47); Lymphocytes # 1.1 10^3/uL (0.8-4.8); Lymphocytes % 7.3 %; Mean Corpuscular HGB Conc 34.7 g/dL (30-55); Mean Corpuscular Hemoglobin 30.1 pg (27-33); Mean Corpuscular Volume 86.6 fl (85-98); Mean Platelet Volume 10.6 fL (7.4-10.4); Monocytes # 0.2 10^3/uL (0.2-0.9); Monocytes % 1.2 %; Nucleated Red Blood Cells % 0 %; Platelet Count 274 10^3/cmm (157-399); Red Blood Count 4.79 10^6/uL (3.85-5.65); Red Cell Distribution Width 11.3 % (12.1-15.1); White Blood Count 15.15 10^3/uL (3.29-11.43)
[2022-12-15 01:00] LABS: Partial Thromboplastin Time 19.8 SECONDS (23.9-36.7)
[2022-12-15] MEDS: famotidine 20 mg/2 mL INJ 40 MG IVP (01:04)
--- NOTE | 2022-12-15 01:05 | ED_ITS ---
HPI - Nausea/Vomiting/Diarrhea General: Chief complaint: Nausea/Vomiting/Diarrhea Stated complaint: 11 weeks , n/v, vomiting blood Time Seen by Provider: 12/15/22 00:01 History of Present Illness: 22-year-old female who is 11 weeks . She has a history of hyperemesis with a previous . During that previous , she had an esophageal rent, and spent several days in the hospital with IV fluids, n.p.o., and medical therapy treating the tear. She did not have to have surgery at that point. This evening, the patient was throwing up related to this . She noticed red stringy material in the vomitus. She has not vomited here. She has some chest discomfort related to the vomiting. No fever. Associated nausea: Yes Associated symtoms: Reports chest pain and nausea; Denies palpitations Review of Systems Const: Denies: fever(s) ENMT: Denies: throat pain Card: Reports: chest pain; Denies: palpitations Resp: Denies: dyspnea, productive cough or non-productive cough GI: Reports: abdominal pain, nausea, vomiting and hematemesis; Denies: diarrhea [facility] ED PFSH: Medical History Anxiety with depression History of traumatic head injury (~2013) thrown from a horse-- no surgical intervention Migraine with aura Ruptured, esophagus Surgical History H/O oral surgery Family History Mother Stroke Family history of thyroid problem Grandmother Family history of thyroid problem Maternal grandmother Ovarian cancer Paternal grandmother Diabetes Maternal Hypertension Maternal Grandfather Heart disease Maternal grandfather Diabetes Maternal Hypertension Materanl Social History Smoking and tobacco status: never smoked Substance/Drug Use: never Additional social history: Female Reproductive History: Date of last menstrual period: 10/04/22 Physical Exam Const: COMMON NORMALS: no acute distress GENERAL APPEARANCE: cooperative; not ill appearing and not frail appearing HENMT: COMMON NORMALS: normocephalic, atraumatic and Normal external nose present HEAD & SCALP: normocephalic and atraumatic FACE & SINUS: normal facial exam and face symmetric NOSE: Normal external nose present Eye: COMMON NORMALS: Equal, round and reactive pupils present and EOMs intact bilaterally PUPIL: Yes Equal, round and reactive pupils present Neck/C-Spine: GENERAL: Yes trachea midline Chest: CHEST: Yes Symmetrical chest wall rise Resp: COMMON NORMALS: normal respiratory effort, No retractions, No use of accessory muscles and clear to auscultation bilaterally AUSCULTATION: clear to auscultation bilaterally Cardio: COMMON NORMALS: regular rate and regular rhythm RATE: regular rate RHYTHM: regular rhythm GI: COMMON NORMALS: Normal to inspection, nondistended, normoactive bowel jean marie nds present Extremity: COMMON NORMALS: no pedal edema Neuro: JEWELS COMA SCALE: document GCS findings [place] coma scale eye opening: Spontaneous Jew[place] coma scale verbal response: Orientated [place] coma scale motor response: Obey commands [place] coma scale total score: 15 SENSORY EXAM: Yes extremities (intact) Psych: COMMON NORMALS: speech normal SPEECH: Yes normal speech Skin: COMMON NORMALS: no rashes or lesions noted GENERAL SKIN EXAM: no rashes or lesions noted Course Vital Signs: Vital signs: Vital Signs Temperature 98.0 F 12/14/22 23:48 Pulse Rate 96 12/15/22 00:46 Respiratory Rate 18 12/14/22 23:48 Blood Pressure 112/83 12/15/22 00:46 Pulse Oximetry 98 12/15/22 00:46 Oxygen Delivery Me thod Room Air 12/15/22 00:46 MDM - Nausea/Vomiting/Diarrhea Medical Decision Making Nausea is improved. No vomiting here. She is dehydrated, so she is now going through her second liter of fluid bolus. Her blood cell count is 15. Hemoglobin 14.4. Platelet count is normal. Her bicarb is 14 indicating significant dehydration. She has 3+ ketones in her urine. Her CRP is 3.5. Other laboratory is benign. Imaging by x-ray esophagram shows no evidence of esophageal tear. As she is feeling improved, she will be allowed discharge. To return for worsening symptoms. Lab Data 12/15/22 00:27 12/15/22 00:27 Radiology Impressions Soft Tissue Neck X-Ray 12/15/22 00:41 IMPRESSION: No acute abnormality demonstrated. No evidence of esophageal tear on limited x-ray esophagram. Laboratory Results WBC 15.15 10^3/uL (3.29-11.43) H 12/15/22 00:27 RBC 4.79 10^6/uL (3.85-5.65) 12/15/22 00:27 Hgb 14.40 g/dL (11.27-16.99) 12/15/22 00:27 Hct 41.5 % (36-47) 12/15/22 00: MCV 86.6 fl (85-98) 12/15/22 00:27 MCH 30.1 pg (27-33) 12/15/22 00: MCHC 34.7 g/dL (30-55) 12/15/22 00: RDW 11.3 % (12.1-15.1) L 12/15/22 00: Plt Count 274 10^3/cmm (157-399) 12/15/22 00: MPV 10.6 fL (7.4-10.4) H 12/15/22 00:27 Neut % (Auto) 91.0 % 12/15/22 00:27 Lymph % (Auto) 7.3 % 12/15/22 00:27 [place] % (Auto) 1.2 % 12/15/22 00:27 Eos % (Auto) 0.0 % 12/15/22 00:27 Baso % (Auto) 0.1 % 12/15/22 00:27 Neut # (Auto) 13.80 10^3/uL (1.8-7.7) H 12/15/22 00:27 Lymph # (Auto) 1.1 10^3/uL (0.8-4.8) 12/15/22 00:27 [place] # (Auto) 0.2 10^3/uL (0.2-0.9) 12/15/22 00:27 Eos # (Auto) 0.0 10^3/uL (0.0-0.8) 12/15/22 00:27 Baso # (Auto) 0.0 10^3/uL (0.0-0.1) 12/15/22 00:27 Nucleated RBC % (auto) 0 % 12/15/22 00: Nucleated RBCs # 0.0 /100WBC 12/15/22 00:27 PT 14.50 SECONDS (12.1-14.9) 12/15/22 00: INR 1.10 (0.8-1.2) 12/15/22 00: APTT 19.8 SECONDS (23.9-36.7) L 12/15/22 00:27 Sodium 137 mmol/L (136-145) 12/15/22 00:27 Potassium 3.8 mmol/L (3.5-5.1) 12/15/22 00: Chloride 99 mmol/L (98-107) 12/15/22 00: Carbon Dioxide 14 mmol/L (22-29) L 12/15/22: Anion Gap 27.8 (5-19) H 12/15/22: BUN 10 mg/dL (6-20) 12/15/22: Creatinine 0.6 mg/dL (0.5-0.9) 12/15/22 00: GFR Calculation 122.8 mL/min (90-130) 12/15/22: Glucose 109 mg/dL (65-115) 12/15/22 00: Calculated Osmolality 284 mOsm/kg (285-295) L 12/15/22: Calcium 9.6 mg/dL (8.5-10.5) 12/15/22 00: Total Bilirubin 0.4 mg/dL (0.15-1.2) 12/15/22 00:27 AST 25 U/L (0-32) 12/15/22: ALT 15 U/L (0-33) 12/15/22 00: Alkaline Phosphatase 75 U/L (35-105) 12/15/22 00: C-Reactive Protein 3.5 mg/L (0.0-4.9) 12/15/22 00: Total Protein 8.1 g/dL (6.6-8.7) 12/15/22 00: Albumin 5.0 g/dL (3.5-5.2) 12/15/22 00: Globulin 3.1 g/dL (1.3-4.6) 12/15/22 00:27 Ser , Semi-Qnt 18469.00 mIU/mL 12/15/22 00:27 Urine Color Yellow (Yellow) 12/15/22 01:01 Urine Appearance Clear (CLEAR) 12/15/22 01:01 Urine pH 5 (5-7) 12/15/22 01:01 Ur Specific [place] 1.030 (1.005-1.030) 12/15/22 01:01 Urine Protein 1+ (Negative) H 12/15/22 01:01 Urine Glucose (UA) Norm (Normal) 12/15/22 01:01 Urine Ketones 3+ (Negative) H 12/15/22 01:01 Urine Blood Neg (Negative) 12/15/22 01:01 Urine Nitrate Negative (Negative) 12/15/22 01:01 Urine Bilirubin Neg (Negative) 12/15/22 01:01 Urine Urobilinogen Neg mg/dL (Negative) 12/15/22 01:01 Ur Leukocyte Esterase Trace (Negative) H 12/15/22 01:01 Urine RBC Rare /hpf (0-2) 12/15/22 01:01 Urine WBC 0-4 /hpf (0-5) H 12/15/22 01:01 Ur Squamous Epith Cells 5-10 /hpf (0-5) H 12/15/22 01:01 Amorphous Sediment 1+ /hpf 12/15/22 01:01 Urine Bacteria Trace /hpf (NONE) 12/15/22 01:01 Urine Mucus 1+ /hpf 12/15/22 01:01 Blood Type O Positive 12/15/22 00:27 Rho(D) Type Positive 12/15/22 00:27 Antibody Screen Negative 12/15/22 00:27 Discharge Plan Discharge Patient Disposition: Home Clinical Impression: Hyperemesis gravidarum Condition: Stable Prescriptions: No Action diazepam [Valium] 10 mg tablet 10 mg PO BID PRN Emerita 14 mcg/24 hrs (3 yrs) 13.5 mg intrauterine device intrauterine amoxicillin-pot clavulanate 875-125 mg tablet 1 tab PO BID Qty: 20 0RF Discharge Orders: Discharge ED (Routine); Ordered 12/15/22 Ordered By: Randy Edgar Patient Instructions: Hyperemesis Gravidarum (ED) Activity Restrictions/Additional Instructions: Follow a liquid diet for the next 48 hours. Take your nausea medication. Return for vomiting despite this, further evidence of blood in the vomitus, increasing chest or abdominal pain, shortness of breath, any other concerning symptoms. Stand Alone Forms: Work/School Release Coding Level of Care Code ED Clinical Rehabilitation Coordinator for Rashi Álvarez
[2022-12-15 01:22] LABS: Alanine Aminotransferase 15 U/L (0-33); Alkaline Phosphatase 75 U/L (35-105); Anion Gap 27.8 (5-19); Aspartate Amino Transferase 25 U/L (0-32); Blood Urea Nitrogen 10 mg/dL (6-20); C Reactive Protein 3.5 mg/L (0.0-4.9); Calcium 9.6 mg/dL (8.5-10.5); Carbon Dioxide 14 mmol/L (22-29); Chloride 99 mmol/L (98-107); Globulin 3.1 g/dL (1.3-4.6); Glomerular Filtration Rate 122.8 mL/min (90-130); Glucose 109 mg/dL (65-115); Osmolality Calculated 284 mOsm/kg (285-295); Potassium 3.8 mmol/L (3.5-5.1); Sodium 137 mmol/L (136-145); Total Bilirubin 0.4 mg/dL (0.15-1.2); Total Protein 8.1 g/dL (6.6-8.7)
[2022-12-15 01:25] LABS: Glucose Urine UA Norm (Normal); Protein Urine 1+ (Negative); Urine Appearance Clear (CLEAR); Urine Color Yellow (Yellow); pH Urine 5 (5-7)
[2022-12-15 01:26] LABS: Add Urine Culture? No; Add Urine Microscopic? YES; Amorphous Sediment Urine 1+ /hpf; Bacteria Urine TRACE /hpf; Bilirubin Urine Neg (Negative); Blood Urine Neg (Negative); Ketones Urine 3+ (Negative); Leukocyte Esterase Urine Trace (Negative); Mucus Urine 1+ /hpf; Nitrate Urine Negative (Negative); RBC Urine RARE /hpf (0-2); Urobilinogen Urine Neg (Negative); WBC Urine 0-4 /hpf (0-5)
[2022-12-15] MEDS: metoclopramide 5 mg/mL SDV 2 mL IVP (02:43)
[2022-12-15 03:15] VITALS: BP 102/66; PULSE 81; RESP 16; O2SAT 100
== END 2022-12-15 03:49 | disposition home or self-care (01) ==
PROVIDERS: Emergency Provider Emergency Medicine
DX: O21.0 Mild hyperemesis gravidarum (principal); Z3A.11 11 weeks gestation of pregnancy
CPT/HCPCS: 70360; 80053; 81001; 84702; 85025; 85610; 85730; 86140; 86850; 86900; 96361; 96374; 96375; 99284; J2765; J3490; J7030

== ENCOUNTER 2023-01-06 16:31 | Emergency (ER) | payer MEDICAID, SELFPAY ==
[2023-01-06 16:40] VITALS: BP 128/85; PULSE 99; RESP 17; TEMP 37; O2SAT 100; BMI 21.6
--- NOTE | 2023-01-06 16:53 | XRR_ITS ---
PROCEDURE INFORMATION: Exam: XR Chest Exam date and time: 01/06/2023 4:58 PM Age: 22 years old Clinical indication: Cough and dyspnea; Additional info: Dyspnea/cough TECHNIQUE: Imaging protocol: Radiologic exam of the chest. Views: 1 view. COMPARISON: CT chest w con* [id number] 08/11/2019 2:50 PM FINDINGS: Lungs: Unremarkable. No consolidation. Pleural spaces: Unremarkable. No pleural effusion. No pneumothorax. Heart/Mediastinum: Unremarkable. No cardiomegaly. Bones/joints: Unremarkable. XR/XR chest 1V portable [id number] IMPRESSION: No acute findings.
[2023-01-06 17:12] VITALS: O2SAT 96
--- NOTE | 2023-01-06 17:19 | W.ED.COVID ---
HPI - COVID General: Chief Complaint: COVID symptoms Stated Complaint: covid symptoms Time Seen by Provider: 01/06/23 16:44 Source: patient Mode of arrival: ambulatory History of Present Illness: 22-year-old female presents to the emergency room with complaints of diarrhea myalgias low-grade fever slight cough began yesterday. She is approximately 12 weeks has had some diarrhea as well. MD complaint: has COVID symptoms Prior covid testing: no COVID 19 common symptoms: positive fever(s), chills, cough and non-productive cough; negative dyspnea COVID 19 other sytmptoms: negative chest pain Onset (ago): day(s) Severity: mild Pertinent comorbid conditions: Treatment prior to arrival: none COVID Results: SARS-CoV-2 Antigen (Rapid) Negative (Negative) 01/06/23 17:03 Review of Systems Const: Reports: fever(s) and chills Card: Denies: chest pain Resp: Reports: non-productive cough; Denies: dyspnea GI: Denies: abdominal pain : Denies: dysuria, urinary frequency or urinary urgency Musc: Denies: neck pain or back pain Skin/Breast: Denies: rash PFSH ED PFSH: Medical History Anxiety with depression History of traumatic head injury (~2013) thrown from a horse-- no surgical intervention Migraine with aura Ruptured, esophagus Surgical History H/O oral surgery Family History Mother Stroke Family history of thyroid problem Grandmother Family history of thyroid problem Maternal grandmother Ovarian cancer Paternal grandmother Diabetes Maternal Hypertension Maternal Grandfather Heart disease Maternal grandfather Diabetes Maternal Hypertension Materanl Social History Smoking and tobacco status: never smoked Substance/Drug Use: never Additional social history: Physical Exam Const: COMMON NORMALS: no acute distress GENERAL APPEARANCE: cooperative and comfortable ORIENTATION/CONSCIOUSNESS: Yes awake, Yes oriented to person, Yes oriented to place and Yes oriented to time HENMT: COMMON NORMALS: normocephalic, atraumatic and hearing grossly normal bilaterally HEAD & SCALP: normocephalic and atraumatic Resp: COMMON NORMALS: normal respiratory effort, No retractions, No use of accessory muscles and clear to auscultation bilaterally AUSCULTATION: clear to auscultation bilaterally Cardio: COMMON NORMALS: regular rate, regular rhythm and No murmurs present (Cardio) RATE: regular rate RHYTHM: regular rhythm GI: COMMON NORMALS: Soft to palpation and No hepatosplenomegaly present AUSCULTATION: Yes normoactive bowel sounds PALPATION: Yes Soft to palpation, No Tenderness to palpation present (GI), No Guarding due to palpation present (GI) and Yes No hepatosplenomegaly present Extremity: COMMON NORMALS: normal to inspection, capillary refill normal, no clubbing, cyanosis or edema, no calf tenderness and no pedal edema Neuro: SENSORIUM/ORIENTATION: Yes oriented to person, Yes oriented to place and Yes oriented to time Skin: COMMON NORMALS: no rashes or lesions noted GENERAL SKIN EXAM: no rashes or lesions noted Course Vital Signs: Vital signs: Vital Signs Temperature 98.6 F 01/06/23 19:26 Pulse Rate 99 01/06/23 19:26 Respiratory Rate 17 01/06/23 19:26 Blood Pressure 128/85 01/06/23 19:26 Pulse Oximetry 96 01/06/23 19:26 Oxygen Delivery Me thod Room Air 01/06/23 17:12 MDM - COVID Medical Decision Making Suspect patient has COVID mild symptoms at this point. Flu is negative. Rapid is also negative. Discussed with her we can get a PCR but I suspect It will be positive based on her symptoms. She is not interested in pursuing treatment with any Paxlovid she is tolerating very well at this point. Will discharge home supportive cares follow-up as needed if has worsening or change symptoms return Medical Records I reviewed the patient's medical records. Lab Data I reviewed the patient's lab results. Radiology Impressions Chest X-Ray 01/06/23 16:53 IMPRESSION: No acute findings. Laboratory Results Influenza Type A Ag negative (Negative) 01/06/23 17:03 Influenza Type B Ag negative (Negative) 01/06/23 17:03 SARS-CoV-2 Ag (Rapid) Negative (Negative) 01/06/23 17:03 SARS-CoV-2 Antigen (Rapid) Negative (Negative) 01/06/23 17:03 All radiology interpretation(s) finalized by discharge Discharge Plan Discharge Patient Disposition: Home Clinical Impression: Viral URI, state, incidental Condition: Stable Prescriptions: No Action diazepam [Valium] 10 mg tablet 10 mg PO BID PRN Emerita 14 mcg/24 hrs (3 yrs) 13.5 mg intrauterine device intrauterine amoxicillin-pot clavulanate 875-125 mg tablet 1 tab PO BID Qty: 20 0RF Discharge Orders: Discharge ED (Routine); Ordered 01/06/23 Ordered By: Jarvis Gonzalez Discharge Diet: Usual diet Discharge Activity: Resume usual activity Patient Instructions: Opioid Safety, Pain Management Activity Restrictions/Additional Instructions: We will contact you with the results of your COVID and flu swabs when they are available. Coding Level of Care Code ED Financial Operations Analyst for Rashi Álvarez
[2023-01-06 17:48] LABS: Influenza A by IFA negative (Negative); Influenza B by IFA negative (Negative)
[2023-01-06 18:17] LABS: SARS Covid-2 Antigen Negative (Negative)
[2023-01-06] MEDS: sodium chloride 0.9% 1,000 ML 999 ML IV (18:34)
[2023-01-06 19:26] VITALS: BP 128/85; PULSE 99; RESP 17; TEMP 37; O2SAT 96
== END 2023-01-06 19:26 | disposition home or self-care (01) ==
PROVIDERS: Emergency Provider Family Medicine
DX: O99.511 Diseases of the respiratory system complicating pregnancy, first trimester (principal); J06.9 Acute upper respiratory infection, unspecified; Z3A.12 12 weeks gestation of pregnancy; Z11.52 Encounter for screening for COVID-19
CPT/HCPCS: 71045; 87426; 87804; 96360; 99284; J7030